=== PATIENT | male | born 1930 | race Hispanic/Latino ===

== ENCOUNTER 2018-07-14 09:27 | Outpatient (CLI) | payer MEDICARE | END 2018-07-14 09:28 | disposition home or self-care (01) | LOC: RAD 09:27 | DX: R35.0 Frequency of micturition (principal) ==

== ENCOUNTER 2018-09-04 09:32 | Emergency (ER) | payer MEDICARE ==
[2018-09-04 09:32] VITALS: BMI 25.0
[2018-09-04 09:52] VITALS: RESP 18; TEMP 98; O2SAT 99
--- NOTE | 2018-09-04 10:30 | ED PDOC ---
Arrival/HPI - General Chief Complaint: Lower Extremity Problem/Injury Time Seen by Provider: 09/04/18 09:46 Historian: Patient - History of Present Illness Narrative History of Present Illness (Text): 09/04/18 10:27 A 88 year old male, whose past medical history includes A-fib, dementia, and asthma, presents to the emergency department complaining of swelling to left foot/ankle. Patient reports increased weakness to both legs as well which they noticed last night and early this morning, causing difficulty ambulating. Patient denies any fever, URI, chest pain, shortness of breath, vomiting, abdominal pain, or any other complaints at this time. PMD: Dr. Vaca [employer] Equipment Monitor: Dr. Agosto Neurologist: Dr. Wynn Past Medical History - Provider Review Nursing Documentation Reviewed: Yes - Infectious Disease Hx of Infectious Diseases: None - Tetanus Immunization Tetanus Immunization: Unknown - Cardiac Hx Atrial Fibrillation: Yes Hx Pacemaker: No Other/Comment: aortic stenosis - Pulmonary Hx Respiratory Disorders: Yes Hx Asthma: Yes - Neurological Hx Paralysis: No - HEENT Hx HEENT Disorder: Yes Hx Cataracts: Yes - Hematological/Oncological Hx Blood Transfusions: Yes Hx Blood Transfusion Reaction: No - Musculoskeletal/Rheumatological Hx Musculoskeletal Disorders: Yes - Gastrointestinal Hx Gastrointestinal Disorders: Yes (COLON CA WITH SURGERY PLACEMENT AND REVERSAL OF COLOSTOMY) Hx Colostomy: Yes (H/O) Hx Gastroesophageal Reflux: Yes Other/Comment: INGUINAL HERNIA REPAIR, GI Bleed while on Pradaxa - Psychiatric Hx Emotional Abuse: No Hx Physical Abuse: No Hx Substance Use: No - Surgical History Hx Inguinal Hernia Repair: Yes - Anesthesia Hx Anesthesia: Yes Hx Anesthesia Reactions: No Hx Malignant Hyperthermia: No - Suicidal Assessment Feels Threatened In Home Enviroment: No Family/Social History - Physician Review Nursing Documentation Reviewed: Yes Family/Social History: No Known Family HX Smoking Status: Former Smoker Hx Alcohol Use: Yes (Wine WITH DINNER DAILY) Hx Substance Use: No Hx Substance Use Treatment: No Allergies/Home Meds Allergies/Adverse Reactions: Allergies clarithromycin [From Biaxin] Adverse Reaction (Verified 09/04/18 10:26) VOMITING Home Medications: Home Meds Medication Instructions Recorded Confirmed Albuterol Sulfate [Proventil Hfa] 0.09 mg IH PRN PRN 11/28/12 09/04/18 Sucralfate [Carafate] 1 gm PO QID 11/28/12 09/04/18 Verapamil [Verapamil HCl] 120 mg PO DAILY 11/28/12 09/04/18 Iron 65 mg PO DAILY 04/23/14 09/04/18 Review of Systems - Physician Review All systems were reviewed & negative as marked: Yes - Review of Systems Constitutional: absent: Fevers Respiratory: absent: SOB, Cough, Sputum, Wheezing Cardiovascular: absent: Chest Pain Gastrointestinal: absent: Abdominal Pain, Vomiting Musculoskeletal: Other (swelling to left ankle/foot) Neurological: Other (weakness to both legs, causing patient to have difficulty ambulating) Physical Exam Vital Signs Reviewed: Yes Vital Signs Temp Pulse Resp BP Pulse Ox 09/04/18 09:49 98 F 61 18 132/63 99 Temperature: Afebrile Blood Pressure: Normal Pulse: Regular Respiratory Rate: Normal Appearance: Positive for: Well-Appearing, Non-Toxic, Comfortable Pain Distress: None Mental Status: No: Alert and Oriented X 3 (alert and oriented x 2 (place and himself)) - Systems Exam Head: Present: Atraumatic, Normocephalic Pupils: Present: PERRL Extroacular Muscles: Present: EOMI Conjunctiva: Present: Normal Mouth: Present: Moist Mucous Membranes Respiratory/Chest: Present: Clear to Auscultation, Good Air Exchange. No: Respiratory Distress, Accessory Muscle Use Cardiovascular: Present: Regular Rate and Rhythm, Normal S1, S2. No: Murmurs Abdomen: No: Tenderness, Distention, Peritoneal Signs Upper Extremity: Present: Normal Inspection. No: Cyanosis, Edema Lower Extremity: Present: Edema (mild edema to left ankle, no pitting edema.), NORMAL PULSES, Normal ROM, Neurovascularly Intact (good strength sensation, patient able to get up with minimal assistance and steady gait with walker with minimal assistance.), Capillary Refill < 2 s. No: Tenderness, Deformity, Temperature Abnormalties Neurological: Present: GCS=15, CN II-XII Intact, Speech Normal Skin: Present: Warm, Dry, Normal Color. No: Rashes Psychiatric: Present: Alert, Oriented x 3, Normal Insight, Normal Concentration Medical Decision Making ED Course and Treatment: 09/04/18 10:30 Impression: 88 year old male with left ankle/foot swelling. Physical exam shows mild edema to left ankle, no pitting edema, good strength sensation, patient ab le to get up with minimal assistance and steady gait with walker with minimal assistance. Plan: -- Labs -- Reassess and disposition Progress Notes: CXR : NAD. US doppler b/l LE : no dvt. EKG: NSR at 62 bpm, (-) acute ST changes, as read by PA. Labs reviewed : wnl, bnp [id number]. 09/04/18 12:30 On re-evaluation, patient remains awake, alert, happy, laying in bed comfortably, has no other complaints. Results d/w the family. Case d/w Dr. Vaca, request CT head and XR L ankle, states that he spoke to Dr. Wynn, who recently saw the patient on Wednesday in his office. He state that if the CT is negative then the patient can be d/c with outpt f/u with him and Dr. Wynn. 09/04/18 13:27 XR L ankle : mild djd, no fracture, no dislocation. CT head : FINDINGS: HEMORRHAGE: No intracranial hemorrhage. BRAIN: Diffuse atrophy with prominence of the ventricles and sulci noted. No mass effect or edema. Intracranial atherosclerosis. Scattered periventricular and subcortical white matter hypodensities, which are nonspecific, but often seen with chronic microvascular ischemic disease. Please note that MRI with diffusion imaging is more sensitive in the detection of acute ischemic event. VENTRICLES: No hydrocephalus. CALVARIUM: Unremarkable. PARANASAL SINUSES: Unremarkable as visualized. No significant inflammatory changes. MASTOID AIR CELLS: Unremarkable as visualized. No inflammatory changes. OTHER FINDINGS: None. IMPRESSION: Generalized atrophy. Nonspecific white matter changes. X-ray and CT results discussed with the patient's family. Case discussed with Dr. Vaca, x-ray and CT results discussed with him, he states that he spoke again with the neurologist who recommends that the patient may need outpatient physical therapy. Otherwise he states that the patient can go home with outpatient follow-up in his office tomorrow and with a neurologist. Plan for outpatient follow-up was discussed with the patient's family and they feel comfortable taking the patient home and following up with Dr. Vaca tomorrow and with the neurologist. - PA / POSTMASTER / Resident Statement MD/ has reviewed & agrees with the documentation as recorded. - Scribe Statement The provider has reviewed the documentation as recorded by the Danis Parson Provider Scribe Attestation: All medical record entries made by the Scribe were at my direction and personally dictated by me. I have reviewed the chart and agree that the record accurately reflects my personal performance of the history, physical exam, medical decision making, and the department course for this patient. I have also personally directed, reviewed, and agree with the discharge instructions and disposition. Disposition/Present on Arrival - Present on Arrival Any Indicators Present on Arrival: No History of DVT/PE: No History of Uncontrolled Diabetes: No Urinary Catheter: No History of Decub. Ulcer: No History Surgical Site Infection Following: None - Disposition Have Diagnosis and Disposition been Completed?: Yes Diagnosis: Left ankle swelling, Leg weakness, bilateral Disposition: HOME/ ROUTINE Disposition Time: 13:30 Patient Plan: Discharge Patient Problems: Current Active Problems Problem Status Onset Left ankle swelling Acute Leg weakness, bilateral Acute Condition: STABLE Discharge Instructions (ExitCare): Weakness (ED) Additional Instructions: Thank you for letting us take care of you today. You were treated for L ankle swelling, concern for b/l LE weakness. The emergency medical care you received today was directed at your acute symptoms. Return to the Emergency Department if your symptoms worsen, do not improve, or if you have any other problems. Please contact your doctor and Dr. Wynn in 2 days for re-evaluation and follow up. Bring any paperwork you were given at discharge with you along with any medications you are taking to your follow up visit. Our treatment cannot replace ongoing medical care by a primary care provider (PCP) outside of the emergency department. Thank you for allowing the [facility] team to be part of your care today. If you had an X-Ray or CT scan: A Radiologist will review the ED reading if any change in treatment is needed we will contact you. Forms: [employer] ([place])
[2018-09-04 10:42] LABS: HEMOGLOBIN 11.7 g/dL (14.0-18.0); MEAN CELL VOLUME 91.2 fl (80.0-105.0); MEAN CORPUSCULAR HEMOGLOBIN 29.5 pg (25.0-35.0); MEAN CORPUSCULAR HGB CONC 32.3 g/dl (31.0-37.0); RBC 3.97 10^6/uL (3.5-6.1); WHITE BLOOD COUNT 6.3 10^3/uL (4.5-11.0)
[2018-09-04 10:50] LABS: ALB/GLOB RATIO 1.2 (1.1-1.8); ALBUMIN 3.6 g/dL (3.0-4.8); ALT/SGPT 24 U/L (7-56); AST/SGOT 33 U/L (17-59); BLOOD UREA NITROGEN 22 mg/dL (7-21); GFR NON-AFRICAN AMERICAN > 60
[2018-09-04 10:57] LABS: B-TYPE NATRIURETIC PEPTIDE 887 pg/mL (0-450)
--- NOTE | 2018-09-04 12:42 | RAD ---
HISTORY: LE edema COMPARISON: Chest x-ray performed 04/04/18 TECHNIQUE: Chest, one view. FINDINGS: LUNGS: No focal consolidation. Please note that chest x-ray has limited sensitivity for the detection of pulmonary masses. PLEURA: No significant pleural effusion identified. No definite pneumothorax . CARDIOVASCULAR: Heart size appears top normal. Prominent mediastinum as on prior imaging may be related to aortic ectasia. OSSEOUS STRUCTURES: Degenerative changes. VISUALIZED UPPER ABDOMEN: Unremarkable. OTHER FINDINGS: None. IMPRESSION: Stable appearance of the chest as above.
--- NOTE | 2018-09-04 13:06 | CT ---
Date of service: 09/04/2018 PROCEDURE: CT HEAD WITHOUT CONTRAST. HISTORY: LE extremity weakness COMPARISON: Noncontrast head CT performed 11/28/12 TECHNIQUE: Axial computed tomography images were obtained through the head/brain without intravenous contrast. Radiation dose: Total exam DLP = 806.61 mGy-cm. This CT exam was performed using one or more of the following dose reduction techniques: Automated exposure control, adjustment of the mA and/or kV according to patient size, and/or use of iterative reconstruction technique. FINDINGS: HEMORRHAGE: No intracranial hemorrhage. BRAIN: Diffuse atrophy with prominence of the ventricles and sulci noted. No mass effect or edema. Intracranial atherosclerosis. Scattered periventricular and subcortical white matter hypodensities, which are nonspecific, but often seen with chronic microvascular ischemic disease. Please note that MRI with diffusion imaging is more sensitive in the detection of acute ischemic event. VENTRICLES: No hydrocephalus. CALVARIUM: Unremarkable. PARANASAL SINUSES: Unremarkable as visualized. No significant inflammatory changes. MASTOID AIR CELLS: Unremarkable as visualized. No inflammatory changes. OTHER FINDINGS: None. IMPRESSION: Generalized atrophy. Nonspecific white matter changes.
--- NOTE | 2018-09-04 13:25 | RAD ---
PROCEDURE: Left Ankle Radiographs. Three views. HISTORY: pain COMPARISON: None available. FINDINGS: BONES: No acute displaced fracture. Degenerative changes including osteophyte formation at the midfoot. Small calcaneal enthesophyte. JOINTS: No dislocation. SOFT TISSUES: Soft tissue swelling. Vascular calcifications. No evidence of radiopaque foreign body. OTHER FINDINGS: None. IMPRESSION: Soft tissue swelling. No acute displaced fracture identified. If symptoms persist or if there is clinical concern, x-ray follow-up in 7-10 days should be considered. Degenerative changes.
[2018-09-04 13:53] LABS: URINE BILIRUBIN NEGATIVE (NEGATIVE); URINE BLOOD NEGATIVE (NEGATIVE); URINE GLUCOSE (UA) NEGATIVE (NEGATIVE); URINE LEUKOCYTE ESTERASE NEGATIVE Leu/uL (NEGATIVE); URINE PROTEIN TRACE mg/dL (<30 mg/dL); URINE UROBILINOGEN 0.2 E.U./dL (<1 E.U./dL)
[2018-09-04 14:00] LABS: URINE APPEARANCE CLEAR (CLEAR); URINE COLOR YELLOW (YELLOW)
[2018-09-04 14:09] LABS: URINE AMORPHOUS SEDIMENT FEW /hpf; URINE BACTERIA FEW /hpf; URINE RBC 0 - 2 /hpf (0-2); URINE WBC 0 - 2 /hpf (0-6)
[2018-09-04 14:10] VITALS: BP 135/82; PULSE 75
--- NOTE | 2018-09-04 20:34 | CARD ---
APPROVED REPORT Date of service: 09/04/2018 EKG Measurement Heart [id number] <Conclusion> Normal sinus rhythm Minor NDSTT abnormalities Borderline ECG
--- NOTE | 2018-09-05 09:00 | US ---
HISTORY: Leg pain and swelling. Evaluate for DVT PHYSICIAN(S): Mariano Villarreal MD. TECHNIQUE: Duplex sonography and color-flow Doppler with graded compression were used to evaluate the deep venous systems of both lower extremities. The exam is limited by the patient's inability to cooperate FINDINGS: The visualized deep venous systems of both lower extremities are sonographically normal and compressible. Normal wave forms and augmentation are seen. There is no sonographic evidence for deep venous thrombosis in the visualized segments of both lower extremities. IMPRESSION: No sonographic evidence for deep venous thrombosis in the visualized segments of both lower extremities. Limited study
== END 2018-09-04 14:09 | disposition home or self-care (01) ==
LOC: ED 09:32
DX: R53.1 Weakness (principal); M25.472 Effusion, left ankle; I48.91 Unspecified atrial fibrillation; F03.90 Unspecified dementia, unspecified severity, without behavioral disturbance, psychotic disturbance, mood disturbance, and anxiety; Z87.891 Personal history of nicotine dependence